=== PATIENT | female | born 1965 | race African-American/Black ===

== ENCOUNTER 2016-09-17 08:34 | Emergency (ER) | payer MEDICAID, MEDICARE ==
[~2016-09-17] VITALS: Ht 170.2 cm; Wt 73.0 kg
[~2016-09-17 08:34] MED LIST: HAL2
[2016-09-17 08:40] VITALS: BP 156/76
[2016-09-17] MEDS ORDERED: TRAZ-129 PO (08:47)
[2016-09-17] MEDS ORDERED: ACET-2178 PO (08:47)
== END 2016-09-17 09:50 | disposition left against medical advice (07) ==
LOC: ER 09:35
DX: Z04.8 Encounter for examination and observation for other specified reasons (principal); Z53.21 Procedure and treatment not carried out due to patient leaving prior to being seen by health care provider

== ENCOUNTER 2016-10-09 21:38 | Emergency (ER) | payer MEDICARE ==
[~2016-10-09] VITALS: Ht 167.6 cm; Wt 73.0 kg
[~2016-10-09 21:38] MED LIST changes: +ACET-2178 PO; +TRAZ-129 PO
[2016-10-09 22:30] VITALS: BP 117/85
== END 2016-10-10 01:04 | disposition left against medical advice (07) ==
LOC: ER 21:38
DX: M79.672 Pain in left foot (principal); M79.671 Pain in right foot; Z53.21 Procedure and treatment not carried out due to patient leaving prior to being seen by health care provider

== ENCOUNTER 2020-07-02 18:02 | Emergency (ER) | payer MEDICAID, MEDICARE ==
[~2020-07-02] VITALS: Ht 167.6 cm; Wt 80.0 kg
[~2020-07-02 18:02] MED LIST changes: -ACET-2178 PO; -HAL2; +HALO2TAB2; +TOPUD PO; -TRAZ-129 PO; +TRAZ-251 PO
[2020-07-02 18:48] LABS: CHLORIDE 106 mEq/L (98-107)
[2020-07-02 18:52] LABS: ETHANOL BLOOD < 10 mg/dL
[2020-07-02 18:55] LABS: BASOPHILS % 1.4 % (0.0-2.0); EOSINOPHILS % 1.4 % (0.0-5.0); HEMATOCRIT. 42.1 % (36.0-48.0); HEMOGLOBIN. 14.6 g/dL (12.0-16.0); LYMPHOCYTES % 22.8 % (20.0-50.0); MEAN CORPUSCULAR HEMOGLOBIN 33.2 pg (28.0-32.0); MEAN CORPUSCULAR VOLUME 95.7 fL (81.0-99.0); MONOCYTES % 7.8 % (2.0-8.0); NEUTROPHILS % 66.6 % (40.0-76.0); RED CELL DISTRIBUTION WIDTH 12.3 % (11.6-14.6)
[2020-07-02 19:19] LABS: MEAN PLATELET VOLUME 10.3 fl (7.4-10.4); PLATELET 233 x1000/uL (130-400)
[2020-07-02 19:57] LABS: PARTIAL THROMBOPLASTIN TIME 24.2 sec (23.4-31.0); PROTHROMBIN TIME 10.8 sec (9.6-11.0)
[2020-07-02] MEDS ORDERED: NALO4SPR BOTHNSTRLS (22:08)
[2020-07-02 22:28] VITALS: BP 129/85
== END 2020-07-02 22:40 | disposition home or self-care (01) ==
LOC: ER 18:02
DX: T40.601A Poisoning by unspecified narcotics, accidental (unintentional), initial encounter (principal); R41.82 Altered mental status, unspecified; Y92.89 Other specified places as the place of occurrence of the external cause; E11.9 Type 2 diabetes mellitus without complications; I10 Essential (primary) hypertension; F12.10 Cannabis abuse, uncomplicated; Z79.899 Other long term (current) drug therapy
CPT/HCPCS: 36415; 71045; 80053; 80307; 80320; 80329; 83880; 84484; 85025; 93005; 99285; G0480

== ENCOUNTER 2020-12-04 15:02 | Emergency (ER) | payer MEDICAID, MEDICARE ==
[~2020-12-04] VITALS: Ht 167.6 cm; Wt 59.0 kg
[~2020-12-04 15:02] MED LIST changes: +NALO4SPR BOTHNSTRLS
[2020-12-04 15:29] VITALS: BP 136/80
[2020-12-04] MEDS ORDERED: KETOROLAC 30MG/ML VIAL IM ONE (15:30)
== END 2020-12-04 16:23 | disposition home or self-care (01) ==
LOC: ER 15:02
DX: K08.89 Other specified disorders of teeth and supporting structures (principal); F16.10 Hallucinogen abuse, uncomplicated; F12.90 Cannabis use, unspecified, uncomplicated; I10 Essential (primary) hypertension; E11.9 Type 2 diabetes mellitus without complications
CPT/HCPCS: 96372; 99283; J1885

== ENCOUNTER 2021-02-16 03:38 | Emergency (ER) | payer MEDICAID ==
[~2021-02-16] VITALS: Ht 167.6 cm; Wt 73.0 kg
[2021-02-16 04:11] VITALS: BP 126/60
== END 2021-02-16 04:28 | disposition left against medical advice (07) ==
LOC: ER 04:22
DX: M79.604 Pain in right leg (principal)
CPT/HCPCS: 99281